=== PATIENT | female | born 1995 | race Caucasian/White ===

== ENCOUNTER 2018-09-20 14:06 | Emergency (ER) | payer OTHER, MEDICAID, SELFPAY ==
[2018-09-20 14:16] VITALS: BP 110/72; PULSE 62; RESP 18; TEMP 36.7; O2SAT 100; BMI 19.3
--- NOTE | 2018-09-20 16:52 | DI.CT.S_ITS ---
PROCEDURE: CT ORBIT BI W CON INDICATIONS: swollen, red left eye visual impairment TECHNIQUE: After the administration of intravenous contrast, 2.5 mm axial images acquired through the orbits, with coronal and sagittal reformats. For radiation dose reduction, the following was used: automated exposure control, adjustment of mA and/or kV according to patient size. COMPARISON: None. FINDINGS: Image quality: Excellent. Orbits: Globes are symmetrical. The optic nerves are normal in size and enhancement. No retrobulbar masses or fat abnormalities. The extra-ocular muscles are normal and symmetrical in appearance. Lacrimal glands are normal. Optic chiasm is normal. There is left periorbital soft tissue swelling with underlying subcutaneous soft tissue edema anterior to the left orbital globe. No drainable fluid collection is identified. Right periorbital soft tissues within normal limits Intracranial: The pituitary gland is normal, without sellar or suprasellar masses. Visualized cerebral hemispheres, brainstem, and spinal cord appear normal. Bones and sinuses: Visualized calvarium and facial bones appear intact. Visualized sinuses and mastoids are clear. IMPRESSION: 1. Findings consistent with left preseptal cellulitis. No abscess collection. 2. Bilateral orbital globes are intact. No gross orbital wall abnormality. Bilateral paranasal sinuses are well aerated. Dictated by: Jackson Booth M.D. on 09/20/2018 at 18:03 Approved by: Jackson Booth M.D. on 09/20/2018 at 18:06
[2018-09-20 17:19] LABS: Add Manual Diff / Slide Review NO; Basophils Absolute Auto 0 /uL (0-100); Basophils Percent Auto 0.6 % (0-2); Eosinophils Absolute Auto 300 /uL (0-450); Eosinophils Percent Auto 3.9 % (2-4); Hematocrit 38.4 % (36-46); Hemoglobin 13.1 g/dL (12.0-16.0); Lymphocytes Absolute Auto 2400 /uL (1100-4500); Lymphocytes Percent Auto 31.2 % (25-40); Mean Corpuscular HGB Conc 34.2 % (30-36); Mean Corpuscular Hemoglobin 31.8 PG (26-34); Mean Corpuscular Volume 93.1 fL (80-100); Monocytes Absolute Auto 600 /uL (0-900); Monocytes Percent Auto 8.3 % (3-14); Neutrophils Absolute Auto 4400 /uL (1500-7000); Platelet Count 262 X10^3/uL (150-400); Red Blood Cell Count 4.13 X10^6/uL (4.0-5.2); Red Cell Distribution Width 12.2 % (11.6-14.8); White Blood Cell Count 7.8 X10^3/uL (4.5-11.0)
[2018-09-20 17:32] LABS: Alanine Aminotransferase 17 IU/L (9-52); Albumin 4.4 g/dL (3.5-5.0); Albumin Globulin Ratio 1.5 (1.0-2.8); Alkaline Phosphatase 44 U/L (38-126); Aspartate Aminotransferase 16 IU/L (14-36); BUN Creatinine Ratio 23.3 (6-22); Bilirubin Total 0.4 mg/dL (0.2-1.3); Blood Urea Nitrogen 14 mg/dL (7-17); Calcium 9.5 mg/dL (8.4-10.2); Carbon Dioxide 27 mmol/L (22-32); Chloride 107 mmol/L (98-107); Estimated Glomerular Filt Rate > 60.0 mL/min (>60); Glucose 112 mg/dL (70-100); HEMOLYSIS < 15 (0-50); Sodium 143 mmol/L (137-145); Total Protein 7.4 g/dL (6.3-8.2)
--- NOTE | 2018-09-20 18:31 | ED.EYEPROB ---
HPI - Eye Problem <CLARI Villela-BC - Last Filed: 09/20/18 20:08> General Chief complaint: Eye Problems Stated complaint: Left eye swollen t-2 blurr/hurting Time Seen by Provider: 09/20/18 16:36 Source: patient Mode of arrival: ambulatory Limitations: no limitations History of Present Illness HPI Narrative: The patient is a 23-year-old female current smoker with history of stye who presents with a chief complaint of left eye redness and swelling. She was started on erythromycin on 09/16. She states since then she has had increasing redness and swelling around her left eye. She states it is draining green stuff. She denies any fevers nausea vomiting or diarrhea. She states that her vision is slightly worse than normal. She states it is blurry, but she has blurry vision at baseline so it is hard to determine. She denies any haloing of lights. She states her eyes somewhat painful to move around. Related Data Home Medications Medication Instructions Recorded Confirmed [JOE OTC SUPPLEMENT] 1 cap PO QDAY #0 05/20/17 09/20/18 levonorgestrel [Liletta] 1 ea IY #0 05/20/17 09/20/18 Previous Rx's Medication Instructions Recorded erythromycin 5 mg/gram (0.5 %) eye 1 cm EYE-LEFT Q8H #1 gram 09/16/18 ointment amoxicillin-pot clavulanate 1 tab PO BID #20 tab 09/20/18 [Augmentin] sulfamethoxazole-trimethoprim 1 tab PO BID #20 tab 09/20/18 [Bactrim DS] Allergies Allergy/AdvReac Type Severity Reaction Status Date / Time No Known Drug Allergies Allergy Verified 09/20/18 14:16 Review of Systems <RAD VillelaBC - Last Filed: 09/20/18 20:08> Review of Systems GENERAL: Denies chills, fatigue, malaise, fever, sweats. HEENT: See HPI RESPIRATORY: Denies dyspnea, cough, wheezing, hemoptysis, sputum. CARDIOVASCULAR: Denies chest pain, palpitations, orthopnea, edema, GASTROINTESTINAL: Denies nausea, vomiting, abdominal pain, diarrhea, constipation, melena. : Denies dysuria, frequency, incontinence, hematuria, urinary retention. MUSCULOSKELETAL: denies weakness, joint pain, or bony pain SKIN: Denies rash, skin lesions, or other NEUROLOGIC: Denies weakness, headache, numbness, change in speech, confusion, seizures, incoordination. PSYCHIATRIC: No concerning psychosocial issues. 12 point review of systems is negative except for those stated above PFSH <DESIRE Villela - Last Filed: 09/20/18 20:08> Medical History (Updated 09/20/18 @ 20:05 by DESIRE Villela) Stye (Acute) Family History (Updated 05/29/17 @ 00:00 by Conversion Provider) Father Age: 64 Heart disease Atrial fibrillation Mother Age: 55 Hypothyroidism Social History Smoking Status: Current every day smoker Family History (Updated 05/29/17 @ 00:00 by Conversion Provider) Father Age: 64 Heart disease Atrial fibrillation Mother Age: 55 Hypothyroidism Social History Smoking Status: Current every day smoker Exam <DESIRE Villela - Last Filed: 09/20/18 20:08> Narrative Exam Narrative: GENERAL: This is a well-nourished, well-developed patient, acute distress HEAD: Atraumatic. Normocephalic. No temporal or scalp tenderness. EYES: Pupils equal round and reactive. Extraocular motions intact. Erythema surrounding left eye. Purulent drainage from left eye noted. Inflamed wound lower left lid noted approximately 3 mm with surrounding erythema. Watering noted left eye. ENT: Nose without bleeding, purulent drainage or septal hematoma. Throat without erythema, tonsillar hypertrophy or exudate. Uvula midline. Airway patent. NECK: Trachea midline. No JVD or lymphadenopathy. Supple, nontender, no meningeal signs. CARDIOVASCULAR: Regular rate and rhythm without murmurs, gallops, or rubs. RESPIRATORY: Clear to auscultation. Breath sounds equal bilaterally. No wheezes, rales, or rhonchi. GASTROINTESTINAL: Abdomen soft, non-tender, nondistended. No hepato-splenomegaly, or palpable masses. No guarding. EXTREMITIES: No clubbing, cyanosis, or edema. No joint tenderness, effusion, or edema noted. BACK: Nontender without deformity or crepitance. No flank tenderness. NEURO: AOx3. SKIN: No rash or erythema. Initial Vital Signs Initial Vital Signs: Vital Signs Temperature 98.0 F 09/20/18 14:16 Pulse Rate 62 09/20/18 14:16 Respiratory Rate 18 09/20/18 14:16 Blood Pressure 110/72 09/20/18 14:16 Pulse Oximetry 100 09/20/18 14:16 <Ayesha Rueda MD - Last Filed: 09/22/18 07:18> Initial Vital Signs Initial Vital Signs: Vital Signs Temperature 98.0 F 09/20/18 14:16 Pulse Rate 62 09/20/18 14:16 Respiratory Rate 18 09/20/18 14:16 Blood Pressure 110/72 09/20/18 14:16 Pulse Oximetry 100 09/20/18 14:16 Course <DESIRE Villela - Last Filed: 09/20/18 20:08> Orders Ordered: Discontinued Medications Amoxicillin/Clavulanate Potassium (Augmentin 875-125 Mg) 1 tab PO NOW ONE Stop: 09/20/18 18:56 Last Admin: 09/20/18 18:50 Dose: 1 tab Trimethoprim/Sulfamethoxazole (Bactrim Ds) 1 tab PO NOW ONE Stop: 09/20/18 18:32 Last Admin: 09/20/18 18:38 Dose: 1 tab Vital Signs - 8 hr 09/20/18 14:16 09/20/18 19:05 Temperature 98.0 F Pulse Rate 62 62 Respiratory Rate 18 14 Blood Pressure 110/72 111/70 Pulse Oximetry 100 100 <Ayesha Rueda MD - Last Filed: 09/22/18 07:18> Orders Ordered: Discontinued Medications Amoxicillin/Clavulanate Potassium (Augmentin 875-125 Mg) 1 tab PO NOW ONE Stop: 09/20/18 18:56 Last Admin: 09/20/18 18:50 Dose: 1 tab Trimethoprim/Sulfamethoxazole (Bactrim Ds) 1 tab PO NOW ONE Stop: 09/20/18 18:32 Last Admin: 09/20/18 18:38 Dose: 1 tab Vital Signs - 8 hr 09/20/18 14:16 09/20/18 19:05 Temperature 98.0 F Pulse Rate 62 62 Respiratory Rate 18 14 Blood Pressure 110/72 111/70 Pulse Oximetry 100 100 MDM - Eye Problem <DESIRE Villela - Last Filed: 09/20/18 20:08> Lab Data Result diagrams: 09/20/18 17:00 09/20/18 17:00 Lab Results 09/20/18 09/20/18 Range/Units 17:00 17:00 WBC 7.8 (4.5-11.0) X10^3/uL RBC 4.13 (4.0-5.2) X10^6/uL Hgb 13.1 (12.0-16.0) g/dL Hct 38.4 (36-46) % MCV 93.1 (80-100) fL MCH 31.8 (26-34) PG MCHC 34.2 (30-36) % RDW 12.2 (11.6-14.8) % Plt Count 262 (150-400) X10^3/uL Neut % (Auto) 56.0 (50-75) % Lymph % (Auto) 31.2 (25-40) % Rice % (Auto) 8.3 (3-14) % Eos % (Auto) 3.9 (2-4) % Baso % (Auto) 0.6 (0-2) % Neut # (Auto) 4400 (0861-9658) /uL Lymph # (Auto) 2400 (7695-4868) /uL Rice # (Auto) 600 (0-900) /uL Eos # (Auto) 300 (0-450) /uL Baso # (Auto) 0 (0-100) /uL Sodium 143 (137-145) mmol/L Potassium 4.0 (3.4-5.1) mmol/L Chloride 107 (98-107) mmol/L Carbon Dioxide 27 (22-32) mmol/L BUN 14 (7-17) mg/dL Creatinine 0.60 (0.52-1.04) mg/dL Estimated GFR > 60.0 (>60) mL/min BUN/Creatinine Ratio 23.3 H (6-22) Glucose 112 H (70-100) mg/dL Calcium 9.5 (8.4-10.2) mg/dL Total Bilirubin 0.4 (0.2-1.3) mg/dL AST 16 (14-36) IU/L ALT 17 (9-52) IU/L Alkaline Phosphatase 44 (38-126) U/L Total Protein 7.4 (6.3-8.2) g/dL Albumin 4.4 (3.5-5.0) g/dL Globulin 3.0 (1.7-4.1) g/dL Albumin/Globulin Ratio 1.5 (1.0-2.8) Point of Care Testing Test Results Negative Imaging Data Orbit CT: Radiologist's impression: [address] [address] [address] Scan Report Signed Patient: Cary Lynn JMR#: [id number] : 1995Acct:[id number] Age/Sex: 23 / FDate of Service: 09/20/18 Loc: ED Accession Number: [id number] Procedure: CT orbit BI w con Ordering Provider: Allyson ShannonP- PROCEDURE: CT ORBIT BI W CON INDICATIONS: swollen, red left eye visual impairment TECHNIQUE: After the administration of intravenous contrast, 2.5 mm axial images acquired through the orbits, with coronal and sagittal reformats. For radiation dose reduction, the following was used: automated exposure control, adjustment of mA and/or kV according to patient size. COMPARISON: None. FINDINGS: Image quality: Excellent. Orbits: Globes are symmetrical. The optic nerves are normal in size and enhancement. No retrobulbar masses or fat abnormalities. The extra-ocular muscles are normal and symmetrical in appearance. Lacrimal glands are normal. Optic chiasm is normal. There is left periorbital soft tissue swelling with underlying subcutaneous soft tissue edema anterior to the left orbital globe. No drainable fluid collection is identified. Right periorbital soft tissues within normal limits Intracranial: The pituitary gland is normal, without sellar or suprasellar masses. Visualized cerebral hemispheres, brainstem, and spinal cord appear normal. Bones and sinuses: Visualized calvarium and facial bones appear intact. Visualized sinuses and mastoids are clear. IMPRESSION: 1. Findings consistent with left preseptal cellulitis. No abscess collection. 2. Bilateral orbital globes are intact. No gross orbital wall abnormality. Bilateral paranasal sinuses are well aerated. Dictated by: Jackson Booth M.D. on 09/20/2018 at 18:03 Approved by: Jackson Booth M.D. on 09/20/2018 at 18:06 [facility] Narrative Medical decision making narrative: The patient is a 23-year-old female who presents with a chief complaint of eye redness and swelling. Left eye CT confirms preseptal cellulitis. The patient was given a prescription for Bactrim and Augmentin as per up-to-date recommendations. Discussed at length strict return precautions of decreased vision, or any acute concerns. Discussed at length following up with a PCP and aquatic facility manager if needed. Patient given contact information for the health human resources partner. Encouraged [id number] medications as needed and able. Wound cultures pending at this time. Patient has no questions or concerns upon discharge. <Ayesha Rueda MD - Last Filed: 09/22/18 07:18> Lab Data Lab Results 09/20/18 09/20/18 Range/Units 17:00 17:00 WBC 7.8 (4.5-11.0) X10^3/uL RBC 4.13 (4.0-5.2) X10^6/uL Hgb 13.1 (12.0-16.0) g/dL Hct 38.4 (36-46) % MCV 93.1 (80-100) fL MCH 31.8 (26-34) PG MCHC 34.2 (30-36) % RDW 12.2 (11.6-14.8) % Plt Count 262 (150-400) X10^3/uL Neut % (Auto) 56.0 (50-75) % Lymph % (Auto) 31.2 (25-40) % Rice % (Auto) 8.3 (3-14) % Eos % (Auto) 3.9 (2-4) % Baso % (Auto) 0.6 (0-2) % Neut # (Auto) 4400 (1974-7446) /uL Lymph # (Auto) 2400 (4257-4962) /uL Rice # (Auto) 600 (0-900) /uL Eos # (Auto) 300 (0-450) /uL Baso # (Auto) 0 (0-100) /uL Sodium 143 (137-145) mmol/L Potassium 4.0 (3.4-5.1) mmol/L Chloride 107 (98-107) mmol/L Carbon Dioxide 27 (22-32) mmol/L BUN 14 (7-17) mg/dL Creatinine 0.60 (0.52-1.04) mg/dL Estimated GFR > 60.0 (>60) mL/min BUN/Creatinine Ratio 23.3 H (6-22) Glucose 112 H (70-100) mg/dL Calcium 9.5 (8.4-10.2) mg/dL Total Bilirubin 0.4 (0.2-1.3) mg/dL AST 16 (14-36) IU/L ALT 17 (9-52) IU/L Alkaline Phosphatase 44 (38-126) U/L Total Protein 7.4 (6.3-8.2) g/dL Albumin 4.4 (3.5-5.0) g/dL Globulin 3.0 (1.7-4.1) g/dL Albumin/Globulin Ratio 1.5 (1.0-2.8) Point of Care Testing Test Results Negative Discharge Plan Departure Patient Disposition: Home Clinical Impression: Preseptal cellulitis of left eye Discharge Date/Time: 09/20/18 19:05 Interventions: ED Discharge Assessment Last Done: 09/20/18 19:05 Instructions: DI for Cellulitis -- Adult Activity Restrictions/Additional Instructions: Your CT scan confirms that you have pre septal cellulitis rather than a different kind of cellulitis, which affects the soft tissues of the back of the eye. I have given you a prescription for two antibiotics. Please monitor for worsening, spreading of redness, visual problems. Please be evaluated if you have any acute concerns such as worsening vision, etc. Please follow up with primary care provider. I have given the contact information for both Ophthalmology as well as the health human resources partner, who can help arrange a primary care provider for you. Prescriptions: New sulfamethoxazole-trimethoprim [Bactrim DS] 800-160 mg tablet 1 tab PO BID Qty: 20 RF: 0 amoxicillin-pot clavulanate [Augmentin] 875-125 mg tablet 1 tab PO BID Qty: 20 RF: 0 No Action erythromycin 5 mg/gram (0.5 %) ointment 1 cm EYE-LEFT Q8H Qty: 1 RF: 0 levonorgestrel [Liletta] 1 EACH intrauterine device 1 ea IY Qty: 0 RF: 0 [JOE OTC SUPPLEMENT] 1 cap PO QDAY Qty: 0 RF: 0 Referrals: [facility] [Provider Group] [facility] [Outside]
[2018-09-20] MEDS: TRIMETH/SULFA 160/800 (DS) TABLET 1 TAB PO (18:38)
[2018-09-20] MEDS: AMOXICILLIN/CLAV 875/125 MG 1 TAB PO (18:50)
[2018-09-20 19:05] VITALS: BP 111/70; PULSE 62; RESP 14; O2SAT 100
--- NOTE | 2018-09-20 20:08 | ED_ITS ---
HPI - Eye Problem <CLARI Villela-BC - Last Filed: 09/20/18 20:08> General Chief complaint: Eye Problems Stated complaint: Left eye swollen t-2 blurr/hurting Time Seen by Provider: 09/20/18 16:36 Source: patient Mode of arrival: ambulatory Limitations: no limitations History of Present Illness HPI Narrative: The patient is a 23-year-old female current smoker with history of stye who presents with a chief complaint of left eye redness and swelling. She was started on erythromycin on 09/16. She states since then she has had increasing redness and swelling around her left eye. She states it is draining green stuff. She denies any fevers nausea vomiting or diarrhea. She states t hat her vision is slightly worse than normal. She states it is blurry, but she has blurry vision at baseline so it is hard to determine. She denies any haloing of lights. She states her eyes somewhat painful to move around. Related Data Home Medications Medication Instructions Recorded Confirmed [JOE OTC SUPPLEMENT] 1 cap PO QDAY #0 05/20/17 09/20/18 levonorgestrel [Liletta] 1 ea IY #0 05/20/17 09/20/18 Previous Rx's Medication Instructions Recorded erythromycin 5 mg/gram (0.5 %) eye 1 cm EYE-LEFT Q8H #1 gram 09/16/18 ointment amoxicillin-pot clavulanate 1 tab PO BID #20 tab 09/20/18 [Augmentin] sulfamethoxazole-trimethoprim 1 tab PO BID #20 tab 09/20/18 [Bactrim DS] Allergies Allergy/AdvReac Type Severity Reaction Status Date / Time No Known Drug Allergies Allergy Verified 09/20/18 14:16 Review of Systems <RAD VillelaBC - Last Filed: 09/20/18 20:08> Review of Systems GENERAL: Denies chills, fatigue, malaise, fever, sweats. HEENT: See HPI RESPIRATORY: Denies dyspnea, cough, wheezing, hemoptysis, sputum. CARDIOVASCULAR: Denies chest pain, palpitations, orthopnea, edema, GASTROINTESTINAL: Denies nausea, vomiting, abdominal pain, diarrhea, constipation, melena. : Denies dysuria, frequency, incontinence, hematuria, urinary retention. MUSCULOSKELETAL: denies weakness, joint pain, or bony pain SKIN: Denies rash, skin lesions, or other NEUROLOGIC: Denies weakness, headache, numbness, change in speech, confusion, seizures, incoordination. PSYCHIATRIC: No concerning psychosocial issues. 12 point review of systems is negative except for those stated above PFSH <DESIRE Villela - Last Filed: 09/20/18 20:08> Medical History (Updated 09/20/18 @ 20:05 by DESIRE Villela) Stye (Acute) Family History (Updated 05/29/17 @ 00:00 by Conversion Provider) Father Age: 64 Heart disease Atrial fibrillation Mother Age: 55 Hypothyroidism Social History Smoking Status: Current every day smoker Family History (Updated 05/29/17 @ 00:00 by Conversion Provider) Father Age: 64 Heart disease Atrial fibrillation Mother Age: 55 Hypothyroidism Social History Smoking Status: Current every day smoker Exam <DESIRE Villela - Last Filed: 09/20/18 20:08> Narrative Exam Narrative: GENERAL: This is a well-nourished, well-developed patient, acute distress HEAD: Atraumatic. Normocephalic. No temporal or scalp tenderness. EYES: Pupils equal round and reactive. Extraocular motions intact. Erythema reid rrounding left eye. Purulent drainage from left eye noted. Inflamed wound lower left lid noted approximately 3 mm with surrounding erythema. Watering noted left eye. ENT: Nose without bleeding, purulent drainage or septal hematoma. Throat without erythema, tonsillar hypertrophy or exudate. Uvula midline. Airway patent. NECK: Trachea midline. No JVD or lymphadenopathy. Supple, nontender, no meni ngeal signs. CARDIOVASCULAR: Regular rate and rhythm without murmurs, gallops, or rubs. RESPIRATORY: Clear to auscultation. Breath sounds equal bilaterally. No wheezes, rales, or rhonchi. GASTROINTESTINAL: Abdomen soft, non-tender, nondistended. No hepato- splenomegaly, or palpable masses. No guarding. EXTREMITIES: No clubbing, cyanosis, or edema. No joint tenderness, effusion, or edema noted. BACK: Nontender without deformity or crepitance. No flank tenderness. NEURO: AOx3. SKIN: No rash or erythema. Initial Vital Signs Initial Vital Signs: Vital Signs Temperature 98.0 F 09/20/18 14:16 Pulse Rate 62 06/23/19 14:16 Respiratory Rate 18 09/20/18 14:16 Blood Pressure 110/72 09/20/18 14:16 Pulse Oximetry 100 09/20/18 14:16 <Ayesha Rueda MD - Last Filed: 09/22/18 07:18> Initial Vital Signs Initial Vital Signs: Vital Signs Temperature 98.0 F 09/20/18 14:16 Pulse Rate 62 09/20/18 14:16 Respiratory Rate 18 09/20/18 14:16 Blood Pressure 110/72 09/20/18 14:16 Pulse Oximetry 100 09/20/18 14:16 Course <DESIRE Villela - Last Filed: 09/20/18 20:08> Orders Ordered: Discontinued Medications Amoxicillin/Clavulanate Potassium (Augmentin 875-125 Mg) 1 tab PO NOW ONE Stop: 09/20/18 18:56 Last Admin: 09/20/18 18:50 Dose: 1 tab Trimethoprim/Sulfamethoxazole (Bactrim Ds) 1 tab PO NOW ONE Stop: 09/20/18 18:32 Last Admin: 09/20/18 18:38 Dose: 1 tab Vital Signs - 8 hr 09/20/18 14:16 09/20/18 19:05 Temperature 98.0 F Pulse Rate 62 62 Respiratory Rate 18 14 Blood Pressure 110/72 111/70 Pulse Oximetry 100 100 <Ayesha Rueda MD - Last Filed: 09/22/18 07:18> Orders Ordered: Discontinued Medications Amoxicillin/Clavulanate Potassium (Augmentin 875-125 Mg) 1 tab PO NOW ONE Stop: 09/20/18 18:56 Last Admin: 09/20/18 18:50 Dose: 1 tab Trimethoprim/Sulfamethoxazole (Bactrim Ds) 1 tab PO NOW ONE Stop: 09/20/18 18:32 Last Admin: 09/20/18 18:38 Dose: 1 tab Vital Signs - 8 hr 09/20/18 14:16 09/20/18 19:05 Temperature 98.0 F Pulse Rate 62 62 Respiratory Rate 18 14 Blood Pressure 110/72 111/70 Pulse Oximetry 100 100 MDM - Eye Problem <DESIRE Villela - Last Filed: 09/20/18 20:08> Lab Data Result diagrams: 09/20/18 17:00 09/20/18 17:00 Lab Results 09/20/18 09/20/18 Range/Units 17:00 17:00 WBC 7.8 (4.5-11.0) X10^3/uL RBC 4.13 (4.0-5.2) X10^6/uL Hgb 13.1 (12.0-16.0) g/dL Hct 38.4 (36-46) % MCV 93.1 (80-100) fL MCH 31.8 (26-34) PG MCHC 34.2 (30-36) % RDW 12.2 (11.6-14.8) % Plt Count 262 (150-400) X10^3/uL Neut % (Auto) 56.0 (50-75) % Lymph % (Auto) 31.2 (25-40) % [place] % (Auto) 8.3 (3-14) % Eos % (Auto) 3.9 (2-4) % Baso % (Auto) 0.6 (0-2) % Neut # (Auto) 4400 (2722-8851) /uL Lymph # (Auto) 2400 (0136-4509) /uL [place] # (Auto) 600 (0-900) /uL Eos # (Auto) 300 (0-450) /uL Baso # (Auto) 0 (0-100) /uL Sodium 143 (137-145) mmol/L Potassium 4.0 (3.4-5.1) mmol/L Chloride 107 (98-107) mmol/L Carbon Dioxide 27 (22-32) mmol/L BUN 14 (7-17) mg/dL Creatinine 0.60 (0.52-1.04) mg/dL Estimated GFR > 60.0 (>60) mL/min BUN/Creatinine Ratio 23.3 H (6-22) Glucose 112 H (70-100) mg/dL Calcium 9.5 (8.4-10.2) mg/dL Total Bilirubin 0.4 (0.2-1.3) mg/dL AST 16 (14-36) IU/L ALT 17 (9-52) IU/L Alkaline Phosphatase 44 (38-126) U/L Total Protein 7.4 (6.3-8.2) g/dL Albumin 4.4 (3.5-5.0) g/dL Globulin 3.0 (1.7-4.1) g/dL Albumin/Globulin Ratio 1.5 (1.0-2.8) Point of Care Testing Test Results Negative Imaging Data Orbit CT: Radiologist's impression: [address] [address] [address] Scan Report Signed Patient: Cary Lynn JMR#: [id number] : 1995Acct:[id number] Age/Sex: 23 / FDate of Service: 09/20/18 Loc: ED Accession Number: [id number] Procedure: CT orbit BI w con Ordering Provider: Allyson Shannon MANDARIN TUTOR- PROCEDURE: CT ORBIT BI W CON INDICATIONS: swollen, red left eye visual impairment TECHNIQUE: After the administration of intravenous contrast, 2.5 mm axial images acquired through the orbits, with coronal and sagittal reformats. For radiation dose reduction, the following was used: automated exposure control, adjustment of mA and/or kV according to patient size. COMPARISON: None. FINDINGS: Image quality: Excellent. Orbits: Globes are symmetrical. The optic nerves are normal in size and enhancement. No retrobulbar masses or fat abnormalities. The extra-ocular muscles are normal and symmetrical in appearance. Lacrimal glands are normal. Optic chiasm is normal. There is left periorbital soft tissue swelling with underlying subcutaneous soft tissue edema anterior to the left orbital globe. No drainable fluid collection is identified. Right periorbital soft tissues within normal limits Intracranial: The pituitary gland is normal, without sellar or suprasellar ma sses. Visualized cerebral hemispheres, brainstem, and spinal cord appear normal. Bones and sinuses: Visualized calvarium and facial bones appear intact. Visualized sinuses and mastoids are clear. IMPRESSION: 1. Findings consistent with left preseptal cellulitis. No abscess collection. 2. Bilateral orbital globes are intact. No gross orbital wall abnormality. Bilateral paranasal sinuses are well aerated. Dictated by: Jackson Booth M.D. on 09/20/2018 at 18:03 Approved by: Jackson Booth M.D. on 09/20/2018 at 18:06 [facility] Narrative Medical decision making narrative: The patient is a 23-year-old female who presents with a chief complaint of eye redness and swelling. Left eye CT confirms preseptal cellulitis. The patient was given a prescription for Bactrim and Augmentin as per up-to-date recommendations. Discussed at length strict return precautions of decreased vision, or any acute concerns. Discussed at length following up with a PCP and energy specialist if needed. Patient given contact information for the health water resources engineer. Encouraged [id number] medications as needed and able. Wound cultures pending at this time. Patient has no questions or concerns upon discharge. <Ayesha Rueda MD - Last Filed: 09/22/18 07:18> Lab Data Lab Results 09/20/18 09/20/18 Range/Units 17:00 17:00 WBC 7.8 (4.5-11.0) X10^3/uL RBC 4.13 (4.0-5.2) X10^6/uL Hgb 13.1 (12.0-16.0) g/dL Hct 38.4 (36-46) % MCV 93.1 (80-100) fL MCH 31.8 (26-34) PG MCHC 34.2 (30-36) % RDW 12.2 (11.6-14.8) % Plt Count 262 (150-400) X10^3/uL Neut % (Auto) 56.0 (50-75) % Lymph % (Auto) 31.2 (25-40) % [place] % (Auto) 8.3 (3-14) % Eos % (Auto) 3.9 (2-4) % Baso % (Auto) 0.6 (0-2) % Neut # (Auto) 4400 (3303-3693) /uL Lymph # (Auto) 2400 (3121-7936) /uL [place] # (Auto) 600 (0-900) /uL Eos # (Auto) 300 (0-450) /uL Baso # (Auto) 0 (0-100) /uL Sodium 143 (137-145) mmol/L Potassium 4.0 (3.4-5.1) mmol/L Chloride 107 (98-107) mmol/L Carbon Dioxide 27 (22-32) mmol/L BUN 14 (7-17) mg/dL Creatinine 0.60 (0.52-1.04) mg/dL Estimated GFR > 60.0 (>60) mL/min BUN/Creatinine Ratio 23.3 H (6-22) Glucose 112 H (70-100) mg/dL Calcium 9.5 (8.4-10.2) mg/dL Total Bilirubin 0.4 (0.2-1.3) mg/dL AST 16 (14-36) IU/L ALT 17 (9-52) IU/L Alkaline Phosphatase 44 (38-126) U/L Total Protein 7.4 (6.3-8.2) g/dL Albumin 4.4 (3.5-5.0) g/dL Globulin 3.0 (1.7-4.1) g/dL Albumin/Globulin Ratio 1.5 (1.0-2.8) Point of Care Testing Test Results Negative Discharge Plan Departure Patient Disposition: Home Clinical Impression: Preseptal cellulitis of left eye Discharge Date/Time: 09/20/18 19:05 Interventions: ED Discharge Assessment Last Done: 09/20/18 19:05 Instructions: DI for Cellulitis -- Adult Activity Restrictions/Additional Instructions: Your CT scan confirms that you have pre septal cellulitis rather than a different kind of cellulitis, which affects the soft tissues of the back of the eye. I have given you a prescription for two antibiotics. Please monitor for worsening, spreading of redness, visual problems. Please be evaluated if you have any acute concerns such as worsening vision, etc. Please follow up with primary care provider. I have given the contact information for both Ophthalmology as well as the health water resources engineer, who can help arrange a primary care provider for you. Prescriptions: New sulfamethoxazole-trimethoprim [Bactrim DS] 800-160 mg tablet 1 tab PO BID Qty: 20 RF: 0 amoxicillin-pot clavulanate [Augmentin] 875-125 mg tablet 1 tab PO BID Qty: 20 RF: 0 No Action erythromycin 5 mg/gram (0.5 %) ointment 1 cm EYE-LEFT Q8H Qty: 1 RF: 0 levonorgestrel [Liletta] 1 EACH intrauterine device 1 ea IY Qty: 0 RF: 0 [JOE OTC SUPPLEMENT] 1 cap PO QDAY Qty: 0 RF: 0 Referrals: [facility] [Provider Group] [facility] [Outside]
== END 2018-09-20 19:05 | disposition home or self-care (01) ==
PROVIDERS: Emergency Provider Nurse Practitioner Family
DX: L03.213 Periorbital cellulitis (principal)
CPT/HCPCS: 36591; 70481; 80053; 81025; 85025; 99283; 99284; Q9967

== ENCOUNTER → 2019-01-08 10:24 | Outpatient (CLI) | payer OTHER, MEDICAID, SELFPAY ==
[2019-01-08 11:36] LABS: Add Manual Diff / Slide Review NO; Basophils Absolute Auto 0 /uL (0-100); Basophils Percent Auto 0.3 % (0-2); Eosinophils Absolute Auto 100 /uL (0-450); Eosinophils Percent Auto 1.8 % (2-4); Hematocrit 37.5 % (36-46); Hemoglobin 12.8 g/dL (12.0-16.0); Lymphocytes Absolute Auto 1700 /uL (1100-4500); Lymphocytes Percent Auto 21.6 % (25-40); Mean Corpuscular HGB Conc 34.1 % (30-36); Mean Corpuscular Hemoglobin 31.5 PG (26-34); Mean Corpuscular Volume 92.4 fL (80-100); Monocytes Absolute Auto 800 /uL (0-900); Monocytes Percent Auto 9.6 % (3-14); Neutrophils Absolute Auto 5400 /uL (1500-7000); Neutrophils Percent Auto 66.7 % (50-75); Platelet Count 238 X10^3/uL (150-400); Red Blood Cell Count 4.06 X10^6/uL (4.0-5.2); Red Cell Distribution Width 12.7 % (11.6-14.8); White Blood Cell Count 8.1 X10^3/uL (4.5-11.0)
[2019-01-08 11:40] LABS: Appearance Urine UA CLEAR; Bilirubin Urine UA NEGATIVE (NEGATIVE); Color Urine UA YELLOW; Glucose Urine UA NEGATIVE (Negative); Ketones Urine UA NEGATIVE (NEGATIVE); Leukocyte Esterase Urine UA NEGATIVE (NEGATIVE); Nitrite Urine UA NEGATIVE (Negative); Occult Blood Urine UA NEGATIVE (Negative); Protein Urine UA NEGATIVE (Negative); Specific Gravity Urine UA <=1.005 (1.000-1.035); Urobilinogen Urine UA 0.2 E.U./dL (0.2)
[2019-01-08 12:01] LABS: pH Urine UA 6.5 (4.5-8.0)
[2019-01-08 12:22] LABS: Free T4, Direct Thyroxine 0.85 ng/dL (0.78-2.19)
[2019-01-08 12:37] LABS: Hepatitis B Surface Antigen NEGATIVE s/c (NEGATIVE); Rubella Antibody IgG 24.2 IU/mL (>15)
[2019-01-08 12:58] LABS: HIV 1 & 2 Ab/Ag 4th Gen Combo NEGATIVE (NEGATIVE); Hep C Virus Ab w/Reflex Quant NEGATIVE s/c (NEGATIVE)
[2019-01-08 13:22] LABS: TSH w/ Reflex to FT4 3.04 uIU/mL (0.47-4.68)
[2019-01-10 22:23] LABS: RPR Screen Nonreactive (Nonreactive)
[2019-01-12 18:21] LABS: Varicella IgG Antibody < 135.00 Index (< 135.00)
== END ==
PROVIDERS: Obstetrics & Gynecology; Visit Provider Obstetrics & Gynecology
DX: Z83.49 Family history of other endocrine, nutritional and metabolic diseases (principal); Z34.91 Encounter for supervision of normal pregnancy, unspecified, first trimester
CPT/HCPCS: 36415; 80055; 81003; 84439; 84443; 86787; 86803; 86850; 86900; 86901; 87086; 87389

== ENCOUNTER → 2019-03-02 14:12 | Outpatient (CLI) | payer OTHER, MEDICAID, SELFPAY ==
[2019-03-05 18:34] LABS: AFP, Serum 23.7 ng/mL; Brief History NTD NG; Calc Gestational Age 16.1; Cigarette Smoker NO; Donated Egg NO; Donor Egg Age NOT GIVEN; Estriol, Free 0.96 ng/mL; Inhibin A, Dimeric 140 pg/mL; Maternal Weight 162 lbs; Number of Fetuses 1; Previous Pregnancy Down Syndro NO; hCG, MoM 0.24; hCG, Serum 7.8 IU/mL
== END ==
PROVIDERS: Visit Provider Specialist
DX: Z34.02 Encounter for supervision of normal first pregnancy, second trimester (principal)
CPT/HCPCS: 36415; 82105; 82677; 84702; 86336

== ENCOUNTER → 2019-04-02 08:59 | Outpatient (CLI) | payer OTHER, MEDICAID, SELFPAY ==
--- NOTE | 2019-04-02 09:00 | DI.US.S_ITS ---
PROCEDURE: US OB >= 14 WEEKS FETUS INDICATIONS: ANATOMY OUTSIDE/PRIOR DATING DATA: Last menstrual period (LMP): 11/09/18. LMP-based estimated date of delivery (LILLIAN): 08/16/19. First dating scan (date and location): 04/02/19. Estimated date of delivery (LILLIAN) from first dating scan: 08/11/19. TECHNIQUE: Real-time scanning was performed of the fetus, with image documentation and biometric measurements. COMPARISON: None. FINDINGS: General: A single living intrauterine gestation is present. Presentation: Breech Placenta: Placental position is anterior, without previa. Amniotic fluid index: 12.9 cm, normal range is 5-24 cm. heart rate: 135 beats per minute. Maternal cervical canal: 3.2 cm long. Normal lower limit is 2.5 cm. biometrics: Biparietal diameter: 20 weeks 6 days Head circumference: 20 weeks 5 days Abdominal circumference: 21 weeks 2 days Femur length: 22 weeks 2 days Estimated gestational age from initial scan: not applicable. Composite gestational age from present scan: 21 weeks 2 days Estimated weight and percentile: 438 g; 93rd percentile Measurement variability for biometric dating: +/- 7 days from 14 weeks to 15 weeks 6 days gestation, +/- 10 days from 16 weeks to 21 weeks 6 days gestation, +/- 2 weeks from 22 weeks to 27 weeks 6 days gestation, +/- 3 weeks for 28 weeks gestation or later. weight reference: 4500 g or EFW >90/95% is considered macrosomia or large for gestational age. EFW <10% is small for gestational age. EFW 5% or less is considered intra-uterine growth restriction. Anatomic survey: Neuro: Ventricles are non-dilated at less than 10 mm. Cisterna magna is normal at 3-11 mm. Cerebellum is normal in size and morphology. Nuchal skin fold: Normal at less than 6 mm between 14-21 weeks gestational age. Face: Nose and lips are normal. Facial profile not well-seen.. Spine: No evidence for spina bifida. Heart: 4-chambered heart is present, with normal ventricular outflow tracts. Diaphragm: Diaphragm is intact. Stomach: Left-sided stomach is present. Kidneys: No hydronephrosis. Normal is less than 5 mm in 2nd trimester, less than 7 mm in 3rd trimester. Cord: 3-vessel cord has orthotopic insertion. Bladder: Normal in size. Extremities: All 4 extremities identified. IMPRESSION: 1. [place]lier living IUP with composite gestational age of 21 weeks 2 days corresponding to ultrasound LILLIAN of 08/11/19. 2. Facial profile not well-visualized otherwise normal anatomy. Dictated by: Tin Soto [facility] Interpreted: Jackson Booth MD on 04/02/2019 at 10:34 Approved by: Jackson Booth M.D. on 04/02/2019 at 11:08
== END ==
PROVIDERS: PCP Obstetrics & Gynecology; Visit Provider Obstetrics & Gynecology
DX: Z34.02 Encounter for supervision of normal first pregnancy, second trimester (principal); Z3A.21 21 weeks gestation of pregnancy
CPT/HCPCS: 76811

== ENCOUNTER → 2019-05-04 13:43 | Outpatient (CLI) | payer OTHER, MEDICAID, SELFPAY ==
--- NOTE | 2019-05-04 13:44 | DI.US.S_ITS ---
PROCEDURE: US OB FOLLOW UP INDICATIONS: F/U FOR FACIAL PROFILE OUTSIDE/PRIOR DATING DATA: Last menstrual period (LMP): 11/09/18. LMP-based estimated date of delivery (LILLIAN): 08/16/19. First dating scan (date and location): 04/02/19. Estimated date of delivery (LILLIAN) from first dating scan: 08/11/19. TECHNIQUE: Real-time scanning was performed of the fetus, with image documentation. Endovaginal scanning: Not needed COMPARISON: None. FINDINGS: A single living intrauterine gestation is present. Presentation: Breech. Placenta: Placental position is anterior, without previa. Amniotic fluid index: 11.8 cm, normal range is 5-24 cm. heart rate: 153 beats per minute. Estimated gestational age from initial scan: 25 weeks 6 days. Completion of the anatomic survey was performed with facial profile well visualized by this examination. IMPRESSION: Completion of the anatomic survey. facial profile is normal. Dictated by: Garth Lowry M.D. on 05/04/2019 at 17:01 Approved by: Garth Lowry M.D. on 05/04/2019 at 17:02
== END ==
PROVIDERS: PCP Obstetrics & Gynecology; Referring Provider Obstetrics & Gynecology; Visit Provider Obstetrics & Gynecology
DX: Z36.2 Encounter for other antenatal screening follow-up (principal); Z3A.25 25 weeks gestation of pregnancy
CPT/HCPCS: 76816

== ENCOUNTER → 2019-05-26 09:33 | Outpatient (CLI) | payer OTHER, MEDICAID, SELFPAY ==
[2019-05-26 11:56] LABS: GTT (PREG) 1 Hour PP 50gm Dose 165 mg/dL (76-139)
== END ==
PROVIDERS: Referring Provider Obstetrics & Gynecology; Visit Provider Obstetrics & Gynecology
DX: Z34.82 Encounter for supervision of other normal pregnancy, second trimester (principal)
CPT/HCPCS: 36415; 82950

== ENCOUNTER → 2019-06-01 08:20 | Outpatient (CLI) | payer OTHER, MEDICAID, SELFPAY ==
[2019-06-01 09:40] LABS: Glucose Fasting Gestational 74 mg/dL (76-95)
[2019-06-01 11:56] LABS: Glucose 1 Hour Gest 151 mg/dL (76-180)
[2019-06-01 12:04] LABS: Glucose Tol Interp,Gestational INTERPRETATION
[2019-06-01 12:12] LABS: Glucose 2 Hour Gest 111 mg/dL (76-155)
[2019-06-01 13:16] LABS: Glucose 3 Hour Gest 96 mg/dL (76-140)
== END ==
PROVIDERS: PCP Obstetrics & Gynecology; Referring Provider Obstetrics & Gynecology; Visit Provider Obstetrics & Gynecology
DX: O26.893 Other specified pregnancy related conditions, third trimester (principal); O99.810 Abnormal glucose complicating pregnancy
CPT/HCPCS: 36415; 82951; 82952

== ENCOUNTER → 2019-07-12 11:42 | Outpatient (CLI) | payer OTHER, MEDICAID, SELFPAY ==
[2019-07-13 12:01] LABS: Strep Grp B PCR NEG for Grp B Strep
== END ==
PROVIDERS: PCP Obstetrics & Gynecology; Visit Provider Obstetrics & Gynecology
DX: Z34.03 Encounter for supervision of normal first pregnancy, third trimester (principal); Z3A.35 35 weeks gestation of pregnancy
CPT/HCPCS: 87653

== ENCOUNTER → 2019-08-04 10:11 | Outpatient (CLI) | payer OTHER, MEDICAID, SELFPAY ==
[2019-08-05 17:52] LABS: Candida species Positive (Negative); Gardnerella vaginalis Positive (Negative); Trichomoas vaginalis Negative (Negative)
== END ==
PROVIDERS: PCP Obstetrics & Gynecology; Visit Provider Obstetrics & Gynecology
DX: O26.893 Other specified pregnancy related conditions, third trimester (principal); N89.8 Other specified noninflammatory disorders of vagina
CPT/HCPCS: 87480; 87510; 87660

== ENCOUNTER 2019-08-17 11:34 | Outpatient (CLI) | payer OTHER, MEDICAID, SELFPAY ==
--- NOTE | 2019-08-18 13:52 | PM.OBTRLD ---
Visit Information Visit Information Date of evaluation: 08/18/19 Primary OB Provider: Kathy Mcgregor Reason for Evaluation: Yes non-stress test Comments/Additional reasons for admission: Patient presenting for postdates testing. Vital Signs Vital Signs: 125/77 [facility] Medical History (Updated 08/23/19 @ 10:32 by Kathy Mcgregor MD) Depression (Acute) Family history of hypothyroidism (05/20/17) History of alcohol abuse (05/20/17) Seasonal allergic reaction (Acute) Stye (Acute) Surgical History Foreign body in ear (Acute) Family History Father Age: 65 Heart disease Atrial fibrillation Mother Age: 56 Hypothyroidism Social History Smoking Status: Former smoker Evaluation Evaluation Baseline heart rate: 135 Variability: Moderate (11-25) monitor accelerations: Present monitor decelerations: Absent Category of Tracing: I Diagnosis, Plan/Disposition Plan/Disposition Plan: home with routine precautions. OB Disposition: home
== END 2019-08-17 12:11 | disposition home or self-care (01) ==
LOC: OB 08-18 12:38
PROVIDERS: PCP Obstetrics & Gynecology; Referring Provider Obstetrics & Gynecology; Visit Provider Obstetrics & Gynecology
DX: O48.0 Post-term pregnancy (principal); Z3A.40 40 weeks gestation of pregnancy
CPT/HCPCS: 59025; 76819; G0378; G0379

== ENCOUNTER → 2019-08-17 12:08 | Outpatient (CLI) | payer OTHER, MEDICAID, SELFPAY ==
--- NOTE | 2019-08-17 12:09 | DI.US.S_ITS ---
PROCEDURE: US OB BIOPHYSICAL PROFILE INDICATIONS: POST DATES OUTSIDE/PRIOR DATING DATA: Last menstrual period (LMP): 11/09/18. LMP-based estimated date of delivery (LILLIAN): 08/16/19. First dating scan (date and location): 04/02/19. Estimated date of delivery (LILLIAN) from first dating scan: 08/11/19. TECHNIQUE: Real-time scanning was performed of the fetus, with image documentation and biometric measurements. Biophysical profile was also obtained. Endovaginal scanning: Not performed COMPARISON: [facility], OB >= 14 WEEKS FETUS, 07/12/2019, 11:21. [facility], OB FOLLOW UP, 05/04/2019, 13:56. [facility], OB >= 14 WEEKS FETUS, 04/02/2019, 9:28. FINDINGS: General: A single living intrauterine gestation is present. Presentation: Vertex. Placenta: Placental position is anterior, without previa. Amniotic fluid index: 14.0 cm, normal range is 5-24 cm. heart rate: 126 beats per minute. Biophysical profile: Tone: 2 points. Movement: 2 points. Respiration: 2 points. Largest pocket of fluid: 2 points. (4.4 cm) IMPRESSION: Single living intrauterine fetus in vertex presentation Normal biophysical profile as above Dictated by: Robert Lion M.D. on 08/17/2019 at 16:06 Approved by: Robert Lion M.D. on 08/17/2019 at 16:09
== END ==
PROVIDERS: PCP Obstetrics & Gynecology; Referring Provider Obstetrics & Gynecology; Visit Provider Obstetrics & Gynecology
DX: O48.0 Post-term pregnancy (principal); Z3A.40 40 weeks gestation of pregnancy
CPT/HCPCS: 76819

== ENCOUNTER 2019-08-20 10:41 | Outpatient (CLI) | payer OTHER, MEDICAID, SELFPAY ==
--- NOTE | 2019-08-20 11:45 | PM.OBTRLD ---
Visit Information Visit Information Date of evaluation: 08/20/19 Primary OB Provider: Kathy Mcgregor Reason for Evaluation: Yes non-stress test Comments/Additional reasons for admission: This patient presents for scheduled testing for postdates after her clinic visit. See clinic note. Vital Signs Vital Signs: 126/76, HR 69 PFSH Medical History Depression (Acute) Family history of hypothyroidism (05/20/17) History of alcohol abuse (05/20/17) Seasonal allergic reaction (Acute) Stye (Acute) Surgical History Foreign body in ear (Acute) Family History Father Age: 65 Heart disease Atrial fibrillation Mother Age: 56 Hypothyroidism Social History Smoking Status: Current every day smoker Review of Systems Constitutional Constitutional: Reports system reviewed and no additional complaints, except as documented Evaluation Evaluation Baseline heart rate: 125 Variability: Moderate (11-25) monitor accelerations: Present monitor decelerations: Absent Contraction Frequency (minutes): 10 Category of Tracing: I Diagnosis, Plan/Disposition Plan/Disposition Plan: Home with precautions and scheduled postdates induction in 3 days. OB Disposition: home
== END 2019-08-20 11:50 | disposition home or self-care (01) ==
LOC: LABOR 11:29 → OB 08-24 11:36
PROVIDERS: PCP Obstetrics & Gynecology; Referring Provider Obstetrics & Gynecology; Visit Provider Obstetrics & Gynecology
DX: O48.0 Post-term pregnancy (principal); Z3A.40 40 weeks gestation of pregnancy
CPT/HCPCS: 59025; G0378; G0379

== ENCOUNTER 2019-08-21 07:19 | Inpatient (IN) | payer OTHER, MEDICAID, SELFPAY ==
[2019-08-21] MEDS: miSOPROStoL 100 MCG TABLET 50 MCG PO (08:51)
[2019-08-21 08:53] VITALS: BP 130/80
--- NOTE | 2019-08-21 09:31 | P.HPOB_ITS ---
OB HPI Date/Time Date of admission: 08/21/19 Date Patient Seen: 08/21/19 Time Patient Seen: 09:00 History of Present Condition Chief complaint: Observation : 2 Para: 1 Estimated Date of Delivery: 08/17/19 Estimated Gestational Age (weeks): 40 Narrative: Cary Lynn is a 24 year old @ 40+5 admitted after PROM for clear fluid at 2:30 AM, with ongoing copious leakage. She reports intermittent mild contractions since that time that have not become consistent, and denies vaginal bleeding, change in movement, fevers, chills, or any other associated symptoms. Her has been uncomplicated, and her drapery cutter machine history is significant only for a history of early IAB without complications. She has a history of depression and anxiety which she has managed with lifestyle changes and good symptom control during this . She has no other contributory drapery cutter machine, medical, surgical, or family history. Indications Indication for induction OB: other (PROM) History of Present care: good care, initiated at week # (11), number of visits (15) and pounds weight gain (65) Dating criteria: LMP confirmed by 1st trimester US Ultrasounds: normal 1st trimester US and normal mid trimester US Obstetrical complications: none Medical complications: none Preadmission Labs Blood type: O (+) positive -: Antibody screen: negative, GBS status: negative, HBsAG: negative, HIV: negative and RPR/VDLR: negative -: Chlamydia screen: not detected and Gonorrhea screen: not detected -: Rubella: immune and Varicella: not immune Integrated screen: declined genetic screening 1 hr GTT: 165 3 hr GTT: 1 hr (151), 2 hr (111) and 3 hr (96) Fasting blood glucose: 74 Prior (ies) History: 2017: IAB, medical, 5 weeks, no complications Evaluation Evaluation Baseline heart rate: 130 Variability: Moderate (11-25) monitor accelerations: Present monitor decelerations: Absent Contraction Frequency (minutes): 10 Category of Tracing: I Cervical dilation (cm): 0 Cervical effacement (%): 50 station: -2 Comments: Grossly ruptured. [facility] Medical History Depression (Acute) Family history of hypothyroidism (05/20/17) History of alcohol abuse (05/20/17) Seasonal allergic reaction (Acute) Stye (Acute) Surgical History Foreign body in ear (Acute) Family History Father Age: 65 Heart disease Atrial fibrillation Mother Age: 56 Hypothyroidism Social History Smoking Status: Former smoker Meds Home Medications and Allergies Home Medications Medication Instructions Recorded Confirmed Type prenat.vits,dolores,[id number] 1 tab PO DAILY 01/21/19 08/21/19 History Allergies Allergy/AdvReac Type Severity Reaction Status Date / Time No Known Drug Allergies Allergy Verified 03/02/19 13:51 Review of Systems Constitutional Constitutional: Reports system reviewed and no additional complaints, except as documented Cardiovascular Cardiovascular: Reports system reviewed; no additional complaints, except as documented Respiratory Respiratory: Reports system reviewed and no additional complaints, except as documented Gastrointestinal Gastrointestinal: Reports as per HPI Endocrine Endocrine: Reports system reviewed and no additional complaints, except as documented Exam Vital Signs (past 8 hours): - 08/21/19 08:53 Blood Pressure 130/80 Resp Effort & Inspection: normal respiratory effort Auscultation: clear to auscultation bilaterally Cardio Rate: regular rate Rhythm: regular rhythm GI Palpation: soft and No tender Other: Appropriately gravid External Female Exam: external appearance normal Skin General: no rashes or lesions noted Objective Labs Result Diagrams: 08/21/19 09:30 Assessment and Plan Assessment and Plan Assessment and Plan narrative: This patient is admitted with PROM overnight with no signs of early labor. She has a closed and thick cervix, and would benefit from some cervical ripening given the character of her exam. The patient will receive 50mcg of oral cytotec, with pitocin to begin 4 hours after this dose and be increased per protocol. Maternal and status are otherwise reassuring, with
[2019-08-21 09:48] LABS: Add Manual Diff / Slide Review NO; Basophils Absolute Auto 100 /uL (0-100); Basophils Percent Auto 0.6 % (0-2); Eosinophils Absolute Auto 100 /uL (0-450); Eosinophils Percent Auto 0.8 % (2-4); Hematocrit 36.2 % (36-46); Hemoglobin 12.3 g/dL (12.0-16.0); Lymphocytes Absolute Auto 2300 /uL (1100-4500); Lymphocytes Percent Auto 24.3 % (25-40); Mean Corpuscular HGB Conc 34.1 % (30-36); Mean Corpuscular Volume 87.7 fL (80-100); Monocytes Absolute Auto 900 /uL (0-900); Monocytes Percent Auto 9.5 % (3-14); Neutrophils Absolute Auto 6100 /uL (1500-7000); Neutrophils Percent Auto 64.8 % (50-75); Platelet Count 209 X10^3/uL (150-400); Red Blood Cell Count 4.12 X10^6/uL (4.0-5.2); Red Cell Distribution Width 14.2 % (11.6-14.8); White Blood Cell Count 9.4 X10^3/uL (4.5-11.0)
[2019-08-21 11:15] LABS: COVID19 -Nasal RAPID Negative (Negative)
[2019-08-21] MEDS: LACTATED RINGERS 1,000 ML 100 ML IV (13:05)
[2019-08-21] MEDS: OXYTOCIN PREMIX 30 UNIT/500 ML PLAST..BAG IV (13:07)
--- NOTE | 2019-08-21 15:16 | PM.OBPNLAB ---
Date/Time Date Patient Seen: 08/21/19 Time Patient Seen: 14:30 Pain Control Pain control: tolerating well Pelvic Exam Amniotic membrane status: Leaking (clear) Contractions Pitocin rate (mU/min): 9 Contraction frequency (min): 3 Contraction duration (min): 1 Contraction pattern: Regular Status status: Category l Heart Rate Baseline: 130 Monitor Accelerations: Present Monitor Decelerations: Absent Monitor Variability: Moderate Assessment and Plan Assessment: induction ongoing Plan: continuous present management Comments: Patient going up on pitocin per protocol, reports feeling contractions q10 minutes. Discussed reevaluation this evening, discussed risk of ascending infection with galeana balloon if cervix unfavorable vs risk of prolonged rupture. GBS found to be , will repeat at exam but start PCN per protocol after 18 hours rupture. Plan discussed with patient, all questions answered.
--- NOTE | 2019-08-21 17:07 | PM.OBPNLAB ---
Date/Time Date Patient Seen: 08/21/19 Time Patient Seen: 17:07 Pain Control Pain control: tolerating well Pelvic Exam Dilation (cm): 1 Effacement (%): 80 station: -2 Amniotic membrane status: Leaking (clear) Contractions Pitocin rate (mU/min): 18 Contraction frequency (min): 3 Contraction pattern: Regular Status status: Category l Heart Rate Baseline: 130 Monitor Accelerations: Present Monitor Decelerations: Absent Monitor Variability: Moderate Assessment and Plan Assessment: induction ongoing Plan: continuous present management Comments: Patient on pitocin for 4 hours, uncomfortable for the past 30 minutes and beginning to make cervical change
[2019-08-21 18:27] LABS: Strep Grp B PCR NEG for Grp B Strep
--- NOTE | 2019-08-21 21:46 | PM.OBPNLAB ---
Date/Time Date Patient Seen: 08/21/19 Time Patient Seen: 21:46 Pain Control Pain control: other (uncomfortable, would like to try benadryl for sleep) Pelvic Exam Dilation (cm): 1 Effacement (%): 80 station: -2 Amniotic membrane status: Leaking (clear) Comments: cervical os itself stiff, rest of cervix soft and thin Contractions Pitocin rate (mU/min): 0 Contraction frequency (min): 3 Contraction pattern: Regular Status status: Category l Heart Rate Baseline: 120 Monitor Accelerations: Present Monitor Decelerations: Absent Assessment and Plan Assessment: induction ongoing Comments: Patient extremely uncomfortable for several hours with q2 contractions on 21 mU pitocin, minimal cervical change with stiff texture to cervical os. Discussed risks/benefits of ascending infection of galeana balloon placement vs. prolonged labor with patient, who vocalized understanding. Galeana balloon placed successfully, contains sterile saline. Will wait 1 hour, then begin 50mcg oral cytotec q4 hrs overnight. Epidural upon request.
[2019-08-21] MEDS: miSOPROStoL 25 MCG TABLET 50 MCG PO (22:05)
[2019-08-21] MEDS: diphenhydrAMINE 50 MG/ML VIAL IV (22:06)
--- NOTE | 2019-08-22 03:42 | PM.OBPNLAB ---
Date/Time Date Patient Seen: 08/22/19 Time Patient Seen: 03:42 Pain Control Comments: Desires epidural with resumption of pitocin Pelvic Exam Dilation (cm): 3 Effacement (%): 100 station: -2 Amniotic membrane status: Leaking (clear) Contractions Contraction frequency (min): 5 Contraction pattern: Regular Status status: Category l Heart Rate Baseline: 135 Monitor Accelerations: Present Monitor Decelerations: Absent Monitor Variability: Moderate Assessment and Plan Assessment: induction ongoing Comments: This patient had a galeana balloon placed at 21:30, which spontaneously expelled shortly before midnight. Exam was deferred until 4 hours after the last dose of cytotec, and the patient was found to have made change as above. Plan is to resume pitocin now and expedite an epidural shortly thereafter.
[2019-08-22] MEDS: LACTATED RINGERS 1,000 ML 100 ML IV ×3 (08:05→18:08)
[2019-08-22] MEDS: FENT 2MCG/ML BUPIV 0.125% EPI 200 MCG/100 ML PLAST..BAG 14 MCG EPIDURAL (09:10)
--- NOTE | 2019-08-22 10:22 | PM.OBPNLAB ---
Date/Time Date Patient Seen: 08/22/19 Time Patient Seen: 10:22 Pain Control Pain control: epidural Comments: Patient sleeping Pelvic Exam Dilation (cm): 4 Effacement (%): 100 station: -1 Amniotic membrane status: Leaking (clear) Comments: T 36.3C, 125/73, HR 88 Contractions Pitocin rate (mU/min): 9 Contraction frequency (min): 4 Contraction pattern: Regular Contraction intensity: Strong/Firm Status status: Category l Heart Rate Baseline: 135 Monitor Accelerations: Present Monitor Decelerations: Absent Monitor Variability: Moderate Assessment and Plan Assessment: induction ongoing Plan: continuous present management Comments: Patient now s/p 1 dose oral cytotec, transition to pitocin yesterday with minimal cervical change, galeana balloon and second dose oral cytotec overnight, then transition to pitocin after favorable cervix achieved. Patient now beginning to make slow cervical change, pitocin being increased per protocol and epidural in place and working. and maternal status reassuring with no signs of infection, despite 32 hours rupture. Repeat GBS negative, no antibiotics administered. Given increased risk of infection with increased number of cervical exams, patient to be allowed to rest in bed with peanut ball in place and pitocin induction ongoing until mid afternoon. Discussed further evaluation with patient at that time.
--- NOTE | 2019-08-22 13:51 | PM.OBPNLAB ---
Date/Time Date Patient Seen: 08/22/19 Time Patient Seen: 13:51 Pain Control Pain control: epidural Pelvic Exam Dilation (cm): 7 Effacement (%): 100 station: 0 Amniotic membrane status: Leaking (clear) Contractions Pitocin rate (mU/min): 18 Contraction frequency (min): 3 Contraction pattern: Regular Contraction intensity: Strong/Firm Status status: Category ll Heart Rate Baseline: 130 Monitor Accelerations: Present Monitor Decelerations: Late Monitor Variability: Minimal Comments: + scal stim. Periods of moderate variability and accels followed by periods of minimal variability with late decelerations. Contractions remain fairly spaced, patient repositioned. Assessment and Plan Plan: other Comments: Undergoing conservative interventions for cat 2 EFM including position change, bolus, O2 supplementation. Pitocin halved to 9. Patient unchanged since nursing exam 2 hours ago, will continue to monitor well being and discuss going induction vs section.
--- NOTE | 2019-08-22 16:07 | PM.OBPNLAB ---
Date/Time Date Patient Seen: 08/22/19 Time Patient Seen: 16:07 Pain Control Pain control: epidural Pelvic Exam Dilation (cm): 7 Effacement (%): 100 station: 0 Amniotic membrane status: Leaking (clear) Contractions Pitocin rate (mU/min): 0 Contraction frequency (min): 3 Contraction pattern: Regular Contraction intensity: Strong/Firm Status status: Category ll Heart Rate Baseline: 130 Monitor Accelerations: Absent Monitor Decelerations: Late Monitor Variability: Minimal Comments: Alternates between minimal and moderate variability with trials of pitocin. Resolves to moderate variability with accels and rare subtle lates when pitocin turned off. Pitocin currently turned off. Assessment and Plan Plan: Comments: This patient is admitted for IOL in the setting of postdates and prolonged rupture of membranes, no 7cm dilated but with intolerance of further induction of labor. Discussed with patient that we recommend expiditious delivery via section, risks of infection, damage to bowel and bladder, hemorrhage, and complications with future pregnancies discussed. Patient vocalized understanding, and informed consent obtained.
[2019-08-22] MEDS: AZITHROMYCIN 500 MG in DEXTROSE 5% IN WATER 250 ML IV (16:22)
[2019-08-22] MEDS: CEFAZOLIN 2 GM/100 ML FROZ.PIGGY IV (17:10)
--- NOTE | 2019-08-22 17:30 | SUR.OPER ---
Supine on Padded OR bed, head on pillow, safety belt at thigh, arms secured on padded arm boards at <90 degrees abduction. Bump under right buttock. Legs uncrossed with pillow under knees, gel pad to heels, tape over blanket to lower legs.
[2019-08-22] MEDS: LIDOCAINE 1% 30 ML INJ (17:46)
--- NOTE | 2019-08-22 17:48 | SUR.OPER ---
FHT 134 POST EPIDURAL DOSING, VIABLE BABY GIRL BORN AT 1733, CORD BLOOD AND PLACENTA GIVEN TO OB RN
[2019-08-22] MEDS: ACETAMINOPHEN IV 1,000 MG/100 ML VIAL 400 MG IV (18:15)
[2019-08-22] MEDS: METHYLERGONOVINE 0.2 MG/ML VIAL IM (18:25)
[2019-08-22 18:33] VITALS: BP 137/89; PULSE 85; RESP 15; TEMP 36.8; O2SAT 99
[2019-08-22 18:38] VITALS: BP 133/93; PULSE 88; RESP 9; O2SAT 99
[2019-08-22 18:44] VITALS: BP 131/90; PULSE 81; RESP 16; O2SAT 98
[2019-08-22 18:49] VITALS: BP 133/90; PULSE 77; RESP 14; O2SAT 98
[2019-08-22] MEDS: OXYCODONE IR 5 MG TABLET PO (18:51)
[2019-08-22 18:54] VITALS: BP 143/89; PULSE 87; RESP 13; O2SAT 98
--- NOTE | 2019-08-22 19:13 | SUR.PHASEI ---
1857 to center, room 2. Reported off to JAYDE Nielsen. Bed down and locked, baby and father in the room, patient holding the baby. RN checking vag flow (not changed in PACU so that she could see the baseline). Gia will finish caring for patient intake - she has not questions. Reported IV tylenol given, oxycodone, appleasauce, ice and water. Patient tolerating pain level well except when fundus us massaged. Explained purpose of checking and massing it to patient the first time that it was done in PACU. Oriented and pleasant, no nausea. Stable.
--- NOTE | 2019-08-22 19:20 | SUR.PHASEI ---
1833 late entry epidural cath intact on arrival (with syringe attached) to PACU
--- NOTE | 2019-08-22 19:20 | SUR.PHASEI ---
1856 late entry JAYDE Nielsen center stated that she would DC the epidural cath.
[2019-08-22] MEDS: OXYTOCIN 10 UNIT/ML VIAL 20 UNIT (20:00)
--- NOTE | 2019-08-22 20:01 | P.OP_ITS ---
Operative Date/Time/Diagnoses Date of procedure: 08/22/19 Time of procedure: 17:01 Pre-op diagnosis: intolerance of labor Post-op diagnosis: same Procedure & Clinicians Procedure: primary section Same procedure as scheduled: Yes Indications: intolerance of labor in the setting of prolonged rupture of membranes and postdates. Surgeon: Kathy Mcgregor Centralized Traffic Control Operator: Flakita Wen Anesthesia Type: Epidural Operative Notes Findings: female infant in cephalic, OP presentation. Normal uterus, tubes, and ovaries. Closure Type: primary Specimen(s): none sent Estimated Blood Loss (mL): 750 Procedure in detail: EBL: 750ccs Fluids:800ccs UOP: 200ccs yellow urine at end of procedure. Findings: Female infant in cephalic, OP presentation, Apgars 9+9, weight 8#5.5 oz, normal uterus, tubes, ovaries. Procedures: The patient was taken to the operating room where epidural anesthesia was bolused. As it was inadequate at the level of the skin, 10ccs 1%lidocaine was injected at the intended incision site. She was prepped and draped in the normal sterile fashion in the dorsal supine position with a leftward tilt. A Pfannenstiel skin incision was made with a scalpel and carried through to the underlying layer of fascia. The fascia was incised in the midline and the incision extended laterally with Fuentes scissors. The inferior aspect of this incision was grasped with Ced clamps, elevated. and the underlying rectus muscles dissected off bluntly. Attention was then turned to the superior aspect of this incision which, in a similar fashion, was grasped, tented up with the Ced clamps, and the rest rectus muscles dissected off bluntly. The rectus muscles were then in the midline, and the peritoneum identified, tented up, and entered sharply with Metzenbaum scissors. The peritoneal incision was extended superiorly and inferiorly with good visualization of the bladder. The bladder blade was inserted and the vesicaouterine peritoneum identified, grasped with pickups, and entered sharply with the Metzenbaum scissors. This incision was extended laterally, and the bladder flap created digitally. The bladder blade was then reinserted and the lower uterine segment incised in transverse fashion with the scalpel. The uterine incision was bluntly extended laterally. The bladder blade was removed, and the infant's head delivered with assistance from a vacuum. The shoulders were delivered with gentle traction under the right axilla. After 45 seconds of delayed cord clamping, the cord was clamped and cut. The nose and mouth were suctioned as needed with a bulb synringe, and the infant was handed off to awaiting pediatricians. The placenta was then removed spontaneously, and the uterus was exteriorized and cleared of all clots and debris. The uterine incision was repaired with 1-0 chromic in a running, locked fashion a 2nd layer of the same suture was used to obtain excellent hemostasis. The uterus was returned to the abdomen, and the gutters were cleared of all clots and debris. The bladder flap was closed with 2-0 vicryl in a running fashion. The fascia reapproximated with 0 Vicryl in a running fashion. The subcutaneous layer was placed with 3 0 Vicryl in an interrupted fashion and the skin was closed with 4-0 biosyn in a running fashion. The patient tolerated the procedure well sponge lap and needle counts were correct x2. 2 g of Ancef and 500mg Azithromycin were given at commencement of the case. A vaginal betadine prep was performed at the beginning of the case. Of note, a delay in assembling an OR crew led to a 1 hour delay in taking the patient to the OR after decision for c section was made, and incision was delayed by newly inadequate IV access in the OR, and inadequate pain control. The patient was taken to the recovery room in stable condition. Complications: none Post-operative Condition: stable Disposition: PACU Plan for aftercare: Methergine series to continue given high risk for hemorrhage. Otherwise normal postoperative care.
[2019-08-22] MEDS: METHYLERGONOVINE 0.2 MG TABLET PO (22:27)
[2019-08-22] MEDS: ONDANSETRON 4 MG/2 ML INJ IV (23:28)
[2019-08-22 23:40] VITALS: TEMP 37
[2019-08-22] MEDS: KETOROLAC 30 MG/ML VIAL IV (23:40)
[2019-08-23 00:20] VITALS: TEMP 37.1
[2019-08-23] MEDS: OXYCODONE IR 5 MG TABLET PO ×4 (00:20→19:49)
[2019-08-23] MEDS: diphenhydrAMINE 50 MG/ML VIAL 25 MG IV ×2 (00:21→02:58)
[2019-08-23] MEDS: METHYLERGONOVINE 0.2 MG TABLET PO ×4 (02:30→16:00)
[2019-08-23] MEDS: LANOLIN OINT 7 GM 1 APPLIC TOP (02:57)
[2019-08-23] MEDS: KETOROLAC 30 MG/ML VIAL IV ×2 (06:08→11:47)
[2019-08-23] MEDS: OXYCODONE IR 5 MG TABLET 10 MG PO (06:09)
[2019-08-23] MEDS: DOCUSATE 250 MG CAPSULE PO (10:20)
--- NOTE | 2019-08-23 10:23 | P.PNOB_ITS ---
Subjective - OB Subjective Patient comments: no complaints, pain well controlled, incisional pain and tolerating diet baby status: doing well feeding status: exclusively breast feeding Narrative: This patient is a 24yo P1 POD#1 s/p pCS for intolerance of labor in the setting of prolonged rupture of membranes and postdates. The patient is doing well this AM, with good pain control, voiding, tolerating PO, ambulating, and mild lochia. Date Patient Seen: 08/23/19 Time Patient Seen: 10:24 Exam Vital Signs (past 8 hours): 130/83, HR 91 Oxygen Delivery Method Room Air Const General: cooperative, healthy appearing and comfortable (resting in bed with baby) Resp Effort & Inspection: normal respiratory effort Auscultation: clear to auscultation bilaterally Cardio Rate: regular rate Rhythm: regular rhythm GI Palpation: soft and No tender Other: Fundus firm, below u. +normal bowel sounds, no flatus yet but no distention. Aquacell dressing soaked after shower- removed and replaced with ta pe dressing. Incision c/d/i, no dranage or active bleeding, no hematoma or bruising, no swelling. Skin General: no rashes or lesions noted Objective Labs Result Diagrams: 08/21/19 09:30 Assessment & Plan Assessment and Plan (1) delivery delivered: Status: Acute Current Visit: Yes Plan day: 1 plan OB: routine care Comments: This patient is doing well on POD#1, with no signs of infection despite prolonged rupture, and a firm fundus and mild lochia on her methergine series. Methergine series to continue, CBC pending this AM. Encouraged ambulation, regular diet, rest, and routine postoperative care. Anticipate discharge tomorrow AM. Time Spent With Patient Time: Total time spent is greater than 50% in coordination of care (as documented) at patient's floor/unit and/or counseling patient: Time with patient: 15-24 minutes
[2019-08-23] MEDS: IBUPROFEN 600 MG TABLET PO (19:49)
[2019-08-24] MEDS: OXYCODONE IR 5 MG TABLET PO ×2 (00:07→07:38)
[2019-08-24] MEDS: ACETAMINOPHEN 325 MG TABLET 650 MG PO ×2 (00:07→07:38)
[2019-08-24] MEDS: IBUPROFEN 600 MG TABLET PO ×2 (02:47→09:39)
[2019-08-24 07:26] VITALS: BP 110/67; PULSE 77; RESP 18; TEMP 37.1
[2019-08-24] MEDS: DOCUSATE 250 MG CAPSULE PO (07:39)
--- NOTE | 2019-08-24 11:07 | PM.OBPN.1 ---
Subjective - OB Subjective Patient comments: no complaints, pain well controlled, incisional pain, tolerating diet and flatus present baby status: doing well and nursing well [place] feeding status: exclusively breast feeding Narrative: This patient is a 24yo POD#2 s/p pCS for intolerance of labor. The patient is doing well this AM, ambulating, tolerating PO, passing flatus, mild lochia, voiding, with no other complaints. Date Patient Seen: 08/24/19 Time Patient Seen: 11:17 Exam Vital Signs (past 8 hours): 124/70, HR 80, T 97.8 F Oxygen Delivery Method Room Air Const General: cooperative, healthy appearing and comfortable Resp Effort & Inspection: normal respiratory effort Auscultation: clear to auscultation bilaterally Cardio Rate: regular rate Rhythm: regular rhythm GI Palpation: soft and No tender Other: fundus firm, well below u. Incision c/d/i, bandage removed Skin General: no rashes or lesions noted Objective Labs Result Diagrams: 08/21/19 09:30 Assessment & Plan Assessment and Plan (1) delivery delivered: Status: Acute Current Visit: Yes Plan day: 2 plan OB: routine postop care and discharge home Comments: This patient is POD#2 s/p pCS, recovering well and meeting postoperative goals appropriately for discharge. A CBC was not drawn yesterday and has been ordered stat for this AM, but patient has no signs/sx of acute blood loss anemia. Postop precautions were discussed, and the patient will be discharged with routine follow up. Time Spent With Patient Time: Total time spent is greater than 50% in coordination of care (as documented) at patient's floor/unit and/or counseling patient: Time with patient: 25 - 35 minutes
--- NOTE | 2019-08-24 11:08 | PM.OBDS.1 ---
Discharge Providers Provider Date of admission: 08/21/19 07:19 Discharge Date: 09/24/19 Primary care physician: Kathy Mcgregor MD Consults: 08/22/19 19:42 Consult to Physician'S Assistant Routine Comment: Discharge provider: Kathy Mcgregor MD Summary Hospital Course Date Patient Seen: 09/24/19 Time Patient Seen: 10:28 Procedures: primary section Hospital Course: This patient was a 24yo now P1 admitted for PROM in the setting of postdates. After 2 days of induction, she was taken for primary section due to intolerance of labor. Her delivery and recovery were uncomplicated, and she was discharged on postoperative day 2 with routine follow up and precautions. Peripartum Data Infant Delivery Method: Section complications: none 1: Gender: Female Disposition of : home Discharge Diagnosis (1) delivery delivered: Status: Acute Status at Discharge Cognitive/behavioral status at discharge: oriented Functional status at discharge: independent ambulation Overall status at discharge: patient is progressing back to baseline Time Spent with Patient Time attestation: Total time spent providing and/or coordinating discharge services: Time spent: Less than 30 minutes Objective Labs Result Diagrams: 08/24/19 11:34 Exam Vital Signs (past 8 hours): Oxygen Delivery Method Room Air Discharge Plan Discharge Plan Patient Disposition: Home Discharge orders & Medications Prescriptions: New docusate sodium 100 mg capsule 100 mg PO BID Qty: 60 RF: 2 ibuprofen 600 mg tablet 600 mg PO Q6H PRN (Reason: delivery) Qty: 30 RF: 0 acetaminophen 325 mg tablet 650 mg PO Q6H PRN (Reason: delivery) Qty: 30 RF: 0 oxycodone 5 mg tablet 5 mg PO Q6H PRN (Reason: pain) Qty: 20 RF: 0 Continued prenat.vits,dolores,[id number] Tablet 1 tab PO DAILY RF: 0 Follow up/Referrals: Kathy Mcgregor MD [Primary Care Provider] - 3-5 Days (September 06, 2019- Friday at 9:30am for incision check) Diet/Activity/Treatments Diet: Regular Activity: Nothing in the vagina for 6 weeks. Avoid lifting more than 10 pounds for 6 weeks. If you have increasing bleeding, fevers, chills, nausea, vomiting, headaches, or any other symptoms or concerns, call the clinic number or come to the emergency room. Skin/Wound/Dressing Care Report to your healthcare provider any signs of infection, such as:: chills, fever, night sweats, increased pain, unusual drainage and unusual redness Visit Report/Discharge Packet Instructions: DI for Stand Alone Forms: Discharge: Care Visit Report Forms: Patient Portal/API, Stroke Signs & Symptoms Discharge Data Primary Care Provider: Kathy Mcgregor Discharges patient from system. Discharge Date/Time: 08/24/19 13:10
[2019-08-24 11:47] LABS: Add Manual Diff / Slide Review NO; Basophils Absolute Auto 0 /uL (0-100); Basophils Percent Auto 0.6 % (0-2); Eosinophils Absolute Auto 100 /uL (0-450); Eosinophils Percent Auto 0.9 % (2-4); Hematocrit 26.7 % (36-46); Hemoglobin 9.1 g/dL (12.0-16.0); Lymphocytes Absolute Auto 1500 /uL (1100-4500); Lymphocytes Percent Auto 17.8 % (25-40); Mean Corpuscular Hemoglobin 29.9 PG (26-34); Monocytes Absolute Auto 700 /uL (0-900); Monocytes Percent Auto 8.8 % (3-14); Neutrophils Absolute Auto 5900 /uL (1500-7000); Neutrophils Percent Auto 71.9 % (50-75); Platelet Count 173 X10^3/uL (150-400); Red Blood Cell Count 3.03 X10^6/uL (4.0-5.2); Red Cell Distribution Width 14.8 % (11.6-14.8); White Blood Cell Count 8.2 X10^3/uL (4.5-11.0)
== END 2019-08-24 13:10 | disposition home or self-care (01) | DRG 540 ==
PROVIDERS: Admitting Provider Obstetrics & Gynecology; PCP Obstetrics & Gynecology; Referring Provider Obstetrics & Gynecology; Visit Provider Obstetrics & Gynecology
PROC: 10D00Z1 Extraction of Products of Conception, Low, Open Approach (ICD-10-PCS; CPT 59514; principal; 2019-08-22 16:50)
DX: O42.12 Full-term premature rupture of membranes, onset of labor more than 24 hours following rupture (principal); Z3A.40 40 weeks gestation of pregnancy; Z37.0 Single live birth; O76 Abnormality in fetal heart rate and rhythm complicating labor and delivery; O36.8330 Maternal care for abnormalities of the fetal heart rate or rhythm, third trimester, not applicable or unspecified; Z11.59 Encounter for screening for other viral diseases; O48.0 Post-term pregnancy
CPT/HCPCS: 01967; 01968; 59025; 59050; 59200; 59514; 85025; 86850; 86900; 86901; 87081; 87635; 87653; G0379; J0131; J0690; J1170; J1200; J1885; J2210; J2274; J2405; J2590

== ENCOUNTER → 2021-05-07 14:52 | Outpatient (CLI) | payer OTHER, MEDICAID, SELFPAY ==
[2021-05-07 15:52] LABS: Free T4, Direct Thyroxine 0.83 ng/dL (0.78-2.19)
[2021-05-07 16:06] LABS: Thyroid Stimulating Hormone 3.24 uIU/mL (0.47-4.68)
== END ==
PROVIDERS: PCP Family Medicine; Referring Provider Obstetrics & Gynecology; Visit Provider Obstetrics & Gynecology
DX: L65.9 Nonscarring hair loss, unspecified (principal); Z87.898 Personal history of other specified conditions
CPT/HCPCS: 36415; 84439; 84443